=== PATIENT | male | born 1940 | race Caucasian/White ===

== ENCOUNTER 2020-09-05 09:58 | Outpatient (CLI) | payer MEDICARE, BC ==
[~2020-09-05] VITALS: Ht 177.8 cm; Wt 74.8 kg
[2020-09-05] VITALS (7 sets, daily range): BP systolic 100–151; BP diastolic 54–69
[2020-09-05] MEDS ORDERED: nitroGLYCERIN 0.4mg SUBLingual tab SL PRN (10:45)
[2020-09-05] MEDS ORDERED: aminophylline 250mg/10ml inj. IV PRN (10:45)
[2020-09-05] MEDS ORDERED: regadenoson 0.4mg/5ml syringe IV ONE (10:45)
== END 2020-09-05 23:59 | disposition home or self-care (01) ==
LOC: RAD 09:58
PROVIDERS: ATTEND Internal Medicine Cardiovascular Disease
DX: Z01.810 Encounter for preprocedural cardiovascular examination (principal); I25.10 Atherosclerotic heart disease of native coronary artery without angina pectoris
CPT/HCPCS: 78452; 93017; A9500; J2785